=== PATIENT | female | born 1970 | race Caucasian/White ===

== ENCOUNTER → 2016-09-07 | Outpatient (CLI) | payer BC ==
--- NOTE | 2016-09-07 09:51 | Diagnostic Imaging Report ---
PROCEDURE: US Gallbladder. TECHNIQUE: Multiple real-time grayscale images were obtained over the right upper quadrant in various projections. INDICATION: Abdominal pain and cramping FINDINGS: The pancreas appears normal. The liver is fairly homogeneous. Hepatopedal flow in the portal vein is seen. There is a 1.3 cm simple cyst in the right hepatic lobe. The gallbladder demonstrates no stones or wall thickening. No pericholecystic fluid. Sonographic Suazo sign is negative. The CBD is 3 mm in caliber. The right kidney is 9.4 CM in length with no hydronephrosis or focal lesion. No fluid collection in the right upper quadrant is seen. IMPRESSION: A 1.3 cm lesion in the right hepatic lobe appears to be a simple cyst. Dictated by: Dictated on workstation # [id number]
== END ==
LOC: RAD 07:32
PROVIDERS: ATTEND Nurse Practitioner Family
DX: K76.9 Liver disease, unspecified; R10.84 Generalized abdominal pain
CPT/HCPCS: 76705

== ENCOUNTER → 2016-09-17 | Outpatient (CLI) | payer BC ==
[~2016-09-17] MED LIST: CATHETER FLUSH 10 ML SYR IV PRN
--- NOTE | 2016-09-17 17:27 | Diagnostic Imaging Report ---
INDICATION: Abdominal pain. TECHNIQUE: Scintigraphic imaging of the abdomen is performed after intravenous administration of 5.4 mCi technetium-99m Choletec. FINDINGS: Initial images reveal normal distribution of activity throughout the liver with accumulation of activity in the biliary tree and gallbladder. Activity passes into the small bowel within 35 minutes. Patient ingested 8 ounces of Ensure Plus, and gallbladder ejection fraction is calculated to be 32%. Values less than 35% are considered abnormal and can be associated with chronic cholecystitis or biliary dyskinesia. IMPRESSION: No evidence of acute cholecystitis or biliary obstruction. Gallbladder ejection is at the lower limits of normal. Dictated by: Dictated on workstation # [id number]
== END ==
LOC: CARD 10:09
PROVIDERS: ATTEND Nurse Practitioner Family
DX: R10.11 Right upper quadrant pain (principal)
CPT/HCPCS: 78227

== ENCOUNTER 2017-04-07 09:00 | Outpatient (CLI) | payer BC ==
[~2017-04-07] VITALS: Ht 154.9 cm; Wt 67.1 kg
[2017-04-07] MEDS ORDERED: LEVO112T2 PO (09:11)
== END 2017-04-07 10:52 ==
LOC: PREOP 09:00
PROVIDERS: ATTEND Surgery
DX: Z01.818 Encounter for other preprocedural examination (principal); K21.9 Gastro-esophageal reflux disease without esophagitis

== ENCOUNTER 2017-04-12 05:50 | Outpatient (CLI) | payer BC ==
[~2017-04-12] VITALS: Ht 154.9 cm; Wt 67.1 kg
[~2017-04-12 05:50] MED LIST changes: -CATHETER FLUSH 10 ML SYR IV PRN; +LEVO112T2 PO
[2017-04-12 11:31] LABS: BASOPHILS % (AUTO) 0 % (0-10); EOSINOPHILS # (AUTO) 0.1 10^3/uL (0.0-0.3); EOSINOPHILS % (AUTO) 2 % (0-10); HEMATOCRIT 42 % (35-52); HEMOGLOBIN 14.7 G/DL (11.5-16.0); LYMPHOCYTES # (AUTO) 1.2 X 10^3 (1.0-4.0); LYMPHOCYTES % (AUTO) 13 % (12-44); MEAN CORPUSCULAR HEMOGLOBIN 32 PG (25-34); MEAN CORPUSCULAR HGB CONC 35 G/DL (32-36); MEAN CORPUSCULAR VOLUME 91 FL (80-99); MEAN PLATELET VOLUME 9.4 FL (7.4-10.4); MONOCYTES # (AUTO) 0.5 X 10^3 (0.0-1.0); MONOCYTES % (AUTO) 5 % (0-12); NEUTROPHILS # (AUTO) 7.1 X 10^3 (1.8-7.8); NEUTROPHILS % (AUTO) 80 % (42-75); PLATELET COUNT 262 10^3/uL (130-400); RED BLOOD COUNT 4.62 10^6/uL (4.35-5.85); RED CELL DISTRIBUTION WIDTH 12.5 % (10.0-14.5); WHITE BLOOD COUNT 8.9 10^3/uL (4.3-11.0)
[2017-04-12 11:51] LABS: ALANINE AMINOTRANSFERASE 25 U/L (0-55); ALKALINE PHOSPHATASE 67 U/L (40-136); BILIRUBIN,TOTAL 0.7 MG/DL (0.1-1.0); BUN/CREATININE RATIO 8; CALCIUM 9.2 MG/DL (8.5-10.1); CARBON DIOXIDE 25 MMOL/L (21-32); CHLORIDE 107 MMOL/L (98-107); CREATININE SERUM 0.78 MG/DL (0.60-1.30); GFR ESTIMATED > 60; GLUCOSE 94 MG/DL (70-105); POTASSIUM 4.2 MMOL/L (3.6-5.0); SODIUM 139 MMOL/L (135-145); TOTAL PROTEIN 6.9 GM/DL (6.4-8.2)
[2017-04-12] MEDS ORDERED: PANT40TA2 PO (12:16)
== END 2017-04-12 10:17 | disposition designated cancer center or children's hospital (05) ==
LOC: PREOP 05:50
PROVIDERS: ATTEND Surgery
DX: Z01.812 Encounter for preprocedural laboratory examination (principal); Z11.2 Encounter for screening for other bacterial diseases; K82.8 Other specified diseases of gallbladder
CPT/HCPCS: 36415; 80053; 85025; 87081

== ENCOUNTER 2017-04-12 09:33 | Day surgery (SDC) | payer BC ==
[~2017-04-12] VITALS: Ht 154.9 cm; Wt 67.1 kg
--- NOTE | 2017-04-12 10:14 | Conscious Sedation/ASA ---
Conscious Sedation Pre-Proced Time Reviewed: 10:13 ASA Class: 2 Airway Mallampati Classification: ([place] appropriate class) I. II. III, IV Lungs Heart ASA score ASA 1: a normal healthy patient ASA 2: a patient with a mild systemic disease (mid diabetes, controlled hypertension, obesity ASA 3: a patient with a severe systemic disease that limits activity (angina , COPD, prior Myocardial infarction) ASA 4: a patient with an incapacitating disease that is a constant threat to life (CHF, renal failure) ASA 5: a moribund patient not expected to survive 24 hrs. (ruptured aneurysm) ASA 6: a declared brain patient whose organs are being harvested. For emergent operations, add the letter E after the classification Grade 1 Sedation Plan: Discussed options with patient/fam Note The patient is an appropriate candidate to undergo the planned procedure, sedation, and anesthesia. The patient immediately re-assessed prior to indication. TITI LUNDBERG MD Apr 12, 2017 10:13 am
[2017-04-12] MEDS ORDERED: NS IV 500 ML 500 ML IV ONE (10:30)
[2017-04-12] MEDS ORDERED: NS IV 500 ML 500 ML ONE ×2 (10:35→11:58)
[2017-04-12 11:10] VITALS: BP 114/81
[2017-04-12] MEDS ORDERED: MIDAZOLAM 2 MG/2 ML (VERSED) VIAL ONE ×4 (11:46→11:47)
[2017-04-12] MEDS ORDERED: fentaNYL INJECTION 100 MCG/2 ML AMP ONE (11:46)
[2017-04-12] MEDS ORDERED: HURRICAINE EXT TUBE (BENZOCAINE) ONE (11:47)
[2017-04-12] MEDS: MIDAZOLAM 2 MG/2 ML (VERSED) VIAL IVP PRN ×2 (12:03→12:05)
[2017-04-12] MEDS: fentaNYL INJECTION 100 MCG/2 ML AMP IVP PRN ×2 (12:04→12:07)
--- NOTE | 2017-04-12 12:15 | Endo Procedure Record ---
Endo Procedure Report Date of Procedure Last Colonoscopy: No Apr 12, 2017 Surgeon (s) TITI LUNDBERG MD Post Procedure/Op Diagnosis Grade 3 esophagitis Antral ulcers Procedure Performed EGD with antral biopsy for H. pylori Description of Procedure Anesthesia Type: Conscious Sedation Specimen(s) collected/removed antral mucosa for H. pylori Description of the Procedure Indication for the procedure: This lady came in for an endoscopic assessment of symptoms of reflux disease. Informed consent was obtained after reviewing the procedure in detail. Description of the procedure:She was placed in left lateral decubitus position and her vital signs were monitored. Conscious sedation was achieved using Versed and fentanyl. The flexible gastroscope was introduced down the esophagus , past the stomach, into the proximal duodenum. Findings: Esophagus: Grade 3 esophagitis with surface ulceration. There was no stricture Stomach: 2, shallow ulcers, about 2 mm each, adjacent to each other at the antrum. Biopsy for H. pylori was obtained. Duodenum: Normal She tolerated the procedure well and was taken back to the nursing area in a stable condition. Impression: Symptoms of gastroesophageal reflux disease. Grade 3 esophagitis and antral ulcers. Helicobacter status pending. Copies To: DUKE MUÑOZ XAVIER M MD Apr 12, 2017 12:15 pm
[2017-04-12] MEDS ORDERED: PANT40TA2 PO (12:16)
--- NOTE | 2017-04-12 12:18 | Discharge Inst-Simple/Standard ---
Discharge Inst-Standard Discharge Medications New, Converted or Re-Newed RX: RX on Chart Patient Instructions/Follow Up Plan of Care/Instructions/FU: To return on Wednesday for cholecystectomy.To avoid nonsteroidals Activity as Tolerated: Yes Discharge Diet: No Restrictions TITI LUNDBERG MD Apr 12, 2017 12:18 pm
[2017-04-12] MEDS ORDERED: NS IV 500 ML 500 ML IV SCH (12:30)
[2017-04-12 12:40] VITALS: BP 113/73
[2017-04-12 13:05] VITALS: BP 108/71
[2017-04-12 13:15] VITALS: BP 108/71
== END 2017-04-12 13:15 | disposition home or self-care (01) ==
LOC: ENDO 09:33
PROVIDERS: ATTEND Surgery
DX: K21.0 Gastro-esophageal reflux disease with esophagitis (principal); K25.9 Gastric ulcer, unspecified as acute or chronic, without hemorrhage or perforation
CPT/HCPCS: 84703